=== PATIENT | male | born 2000 | race Caucasian/White ===

== ENCOUNTER 2020-05-05 06:13 | Emergency (ER) | payer OTHER, SELFPAY ==
--- NOTE | ~2020-05-05 | XR_ITS ---
EXAMINATION: XR chest 1V portable DATE: 05/05/2020 08:47 INDICATION: Fever. TECHNIQUE: A single frontal view of the chest was obtained. COMPARISON: CT abdomen and pelvis 09/12/17 FINDINGS: The chest demonstrates clear lungs without pneumonia, pleural effusion, or pneumothorax. Th e heart size is normal. IMPRESSION: 1. No acute cardiopulmonary disease. Reviewed, dictated and finalized at location A. [employer]
[2020-05-05 06:39] VITALS: BP 132/81; PULSE 109; RESP 20; TEMP 38; O2SAT 100
[2020-05-05 06:55] LABS: Basophils Absolute Auto 0.1 K/mm3 (0.0-0.1); Basophils Percent Auto 0.3 % (0.2-1.2); Hematocrit 45.2 % (42.0-52.0); Hemoglobin 16.1 g/dL (14.0-18.0); Immature Granulocyte Absolute 0.11 K/mm3 (0.00-0.031); Immature Granulocyte Percent A 0.5 % (0-0.5); Lymphocytes Absolute Auto 0.86 K/mm3 (0.9-3.2); Lymphocytes Percent Auto 4.1 % (18.3-44.2); Mean Corpuscular HGB Conc 35.6 g/dl (32-36); Mean Corpuscular Hemoglobin 32.3 pg (26-34); Mean Corpuscular Volume 90.6 fl (80-100); Mean Platelet Volume 8.8 fl (7.4-10.4); Monocytes Absolute Auto 1.9 K/mm3 (0.1-0.6); Monocytes Percent Auto 8.9 % (2.6-8.5); Neutrophils Absolute Auto 17.9 K/mm3 (1.3-6.7); Neutrophils Percent Auto 86.2 % (45.5-73.1); Platelet Count Result 192 k/mm3 (150-375); Red Blood Count 4.99 M/mm3 (4.6-6.20); Red Cell Distribution Width 11.9 % (11.5-14.5); White Blood Count 20.8 K/mm3 (4.5-10.0)
[2020-05-05] MEDS: ONDANSETRON INJ 4 MG/2 ML VIAL IV PUSH (06:55)
[2020-05-05 07:15] VITALS: BP 138/79; PULSE 95; RESP 18; O2SAT 96
[2020-05-05 07:25] LABS: Alanine Aminotransferase 18 U/L (4-50); Albumin Level 4.4 g/dL (3.5-5.1); Alkaline Phosphatase 56 U/L (38-126); Anion Gap 7 mmol/L (8-16); Aspartate Amino Transferase 20 U/L (17-59); Bilirubin,Total 1.5 mg/dL (0.2-1.3); Blood Urea Nitrogen 14 mg/dL (9-20); Calcium 9.3 mg/dL (8.4-10.2); Carbon Dioxide 30 mmol/L (22-30); Chloride 98 mmol/L (98-107); Estimated CRCL calculation 99 ml/min; Estimated Glomerular Filt Rate > 60; Glucose 123 mg/dL (75-110); Lipase 57 U/L (23-300); Potassium 3.8 mmol/L (3.4-5.0); Sodium 135 mmol/L (137-145)
--- NOTE | 2020-05-05 07:28 | ED.NAVMDI ---
HPI - Nausea/Vomiting/Diarrhea General Chief complaint: Nausea/Vomiting/Diarrhea Stated complaint: nausea/vomiting/pain Time Seen by Provider: 05/05/20 07:05 History of Present Illness HPI Narrative: Nausea and vomiting since last night. Not tolerating anything PO. Associated with fever, headache, and myalgias. No known sick contacts. Related Data Allergies Allergy/AdvReac Type Severity Reaction Status Date / Time No Known Allergies Allergy Unverified 09/12/17 14:01 Review of Systems Review of Systems: All systems reviewed & are unremarkable except as noted in HPI and below Constitutional: Constitutional: Reports fever(s) ENT: Reports sore throat Cardiovascular: Cardiovascular: Denies chest pain Respiratory: Respiratory: Reports cough and Denies dyspnea Gastrointestinal: Gastrointestinal: Denies abdominal pain, Denies diarrhea, Reports nausea and Reports vomiting Genitourinary: Genitourinary: Denies hematuria and Denies dysuria Musculoskeletal: Musculoskeletal: Reports back pain Integumentary/Breasts: Skin/Breast: Denies rash Neurologic: Denies confusion and Denies numbness PMFSH Past Medical History Medical History Healthy adult Family History Family History Other Asthma Depression Family history of alcoholism Family history of allergic disorder Family history of cardiovascular disease Family history of lung cancer Family history of malignant neoplasm Hypertension Social History Social History Smoking status: Never smoker Second hand tobacco smoke exposure: No Alcohol intake: never Exam Const: General: no acute distress, alert and ill appearing Nutritional Appearance: well nourished Orientation/consciousness: patient oriented x3 HENMT: Head: normal to inspection Neck: Neck: normal visual inspection Resp: Effort & Inspection: normal respiratory effort Auscultation: clear to auscultation bilaterally Cardio: Rate: tachycardic Rhythm: regular rhythm GI: GI Palp: Yes Soft to palpation and No Tenderness to palpation present (GI) Skin: General skin exam: normal color Neuro: General: patient oriented x3, moves all extremities, no focal motor deficits and CN's II-XI intact bilaterally Speech: normal speech Extrem: General: normal to inspection Psych: Appearance: grossly normal Mental Status: mental status grossly normal Affect: normal affect Course Vital Signs Vital signs: Vital Signs Temperature 38.0 C H 05/05/20 06:39 Pulse Rate 109 H 05/05/20 06:39 Respiratory Rate 20 05/05/20 06:39 Blood Pressure 132/81 05/05/20 06:39 Pulse Oximetry 100 05/05/20 06:39 Temperature 38.0 C H 05/05/20 06:39 Pulse Rate 95 05/05/20 09:00 Respiratory Rate 20 05/05/20 09:00 Blood Pressure 116/65 05/05/20 09:00 Pulse Oximetry 96 05/05/20 09:00 MDM - Nausea/Vomiting/Diarrhea MDM Narrative Medical decision making narrative: Tolerating PO. Feeling better with fluids and symptomatic treatment. Differential Diagnosis Differential diagnosis: Likely food poisoning, gastroenteritis, dehydration and other (COVID-19) Medical Records Attestation: I reviewed the patient's medical records. Lab Data Attestation: I reviewed the patient's lab results. Result diagrams: 05/05/20 06:48 05/05/20 07:06 Labs: Lab Results 05/05/20 05/05/20 05/05/20 Range/Units 06:48 07:06 08:10 WBC 20.8 H (4.5-10.0) K/mm3 RBC 4.99 (4.6-6.20) M/mm3 Hgb 16.1 (14.0-18.0) g/dL Hct 45.2 (42.0-52.0) % MCV 90.6 (80-100) fl MCH 32.3 (26-34) pg MCHC 35.6 (32-36) g/dl RDW 11.9 (11.5-14.5) % Plt Count 192 (150-375) k/mm3 MPV 8.8 (7.4-10.4) fl Immature Gran % (Auto) 0.5 (0-0.5) % Neut % (Auto) 86.2 H (45.5-73.1) % Lymph % (Auto)
[2020-05-05] MEDS: SODIUM CHLORIDE 0.9% IV 1,000 ML 999 ML IV CONT ×2 (07:52→08:53)
[2020-05-05] MEDS: METOCLOPRAMIDE HCL INJ 10 MG/2 ML VIAL IV PUSH (07:52)
[2020-05-05 08:00] VITALS: BP 137/87; PULSE 95; RESP 20; O2SAT 98
[2020-05-05 08:20] LABS: Add Urine Microscopic? YES; Appearance Urine Clear (Clear); Bilirubin Urine Negative (Negative); Blood Urine Negative (Negative); Color Urine Yellow (Yellow); Glucose Urine UA Negative (Negative); Ketones Urine 1+ mg/dL (Negative); Leukocyte Esterase Ur Negative LEU/UL (Negative); Mucus Urine Moderate /lpf; Nitrate Urine Negative (Negative); Protein Urine 2+ mg/dL (Negative); RBC Urine 0-2 /hpf (0-2); Urobilinogen Urine Negative mg/dL (<2.0); WBC Urine 0-3 /hpf
[2020-05-05 08:43] LABS: Specific Grav Ur 1.035 (1.001-1.035)
[2020-05-05 09:00] VITALS: BP 116/65; PULSE 95; RESP 20; O2SAT 96
[2020-05-05 17:19] LABS: SARS-CoV-2 RNA PCR Negative
== END 2020-05-05 10:35 | disposition home or self-care (01) ==
PROVIDERS: Emergency Medicine; Emergency Provider Emergency Medicine
DX: K52.9 Noninfective gastroenteritis and colitis, unspecified (principal)
CPT/HCPCS: 36415; 71045; 80053; 81001; 83690; 85025; 87081; 87635; 87804; 87880; 96361; 96365; 96375; 99284; C9803; J0131; J2405; J2765; J7030; U0003

== ENCOUNTER 2020-05-08 11:48 | Emergency (ER) | payer OTHER, SELFPAY ==
[2020-05-08 11:56] VITALS: BP 131/96; PULSE 74; RESP 12; TEMP 36.7; O2SAT 99
--- NOTE | 2020-05-08 12:31 | ED.GENADULT ---
HPI - General Adult General Chief complaint: Upper Respiratory Infection <Javed Perez PA-C - Last Filed: 05/08/20 12:37> Stated complaint: sinus pressure, sore throat, negative covid <Javed Perez PA-C - Last Filed: 05/08/20 12:37> Time Seen by Provider: 05/08/20 12:13 <Javed Perez PA-C - Last Filed: 05/08/20 12:37> Source: patient and old records reviewed <Javed Perez PA-C - Last Filed: 05/08/20 12:37> Mode of arrival: ambulatory <Javed Perez PA-C - Last Filed: 05/08/20 12:37> Limitations: no limitations <Javed Perez PA-C Last Filed: 05/08/20 12:37> History of Present Illness HPI narrative: Patient is a 19-year-old male who presents to emergency department for evaluation of sinus symptoms bilateral ear pain frontal sinus congestion patient had been seen in the ER for nausea and vomiting several days prior which has resolved with Zofran patient notes now he primarily has congestion and rhinorrhea notes recent negative Covid testing denies any sick contacts patient on arrival is in no distress resting comfortably in the room <Javed Perez PA-C Last Filed: 05/08/20 12:37> Related Data Allergies/adverse reactions: Allergies Allergy/AdvReac Type Severity Reaction Status Date / Time No Known Allergies Allergy Verified 05/08/20 11:59 <Javed Perez PA-C - Last Filed: 05/08/20 12:37> Review of Systems Review of Systems: All systems reviewed & are unremarkable except as noted in HPI and below <Javed Perez PA-C - Last Filed: 05/08/20 12:37> PMFSH Past Medical History Medical History: Medical History Healthy adult <Javed Perez PA-C - Last Filed: 05/08/20 12:37> Family History Family History: Family History Other Asthma Depression Family history of alcoholism Family history of allergic disorder Family history of cardiovascular disease Family history of lung cancer Family history of malignant neoplasm Hypertension <Javed Perez PA-C - Last Filed: 05/08/20 12:37> Social History Social History: Social History Smoking status: Never smoker Second hand tobacco smoke exposure: No Alcohol intake: never <TYLER Jurado Last Filed: 05/08/20 12:37> Exam Narrative: Exam Narrative: GENERAL: Well-appearing, well-nourished, and in no acute distress. HEAD: Normocephalic, atraumatic. EYES: PERRLA and EOMI. ENT: Nares clear, no rhinorrhea or epistaxis. Mucous membranes moist. Oropharynx without tonsillar hypertrophy exudate or other lesions. Bilateral TM erythematous bulging with poor landmarks CHEST: Clear to auscultation. No respiratory distress. No wheezes rales or rhonchi HEART: Regular rate and rhythm. No murmur heard. EXTREMITIES: Normal range of motion. No edema. SKIN: Warm, dry, no rash. NEURO: No focal deficits. Alert and oriented x3. PSYCH: Normal mood and affect. <TYLER Jurado Last Filed: 05/08/20 12:37> Course Course Emergency Course: Patient in the room in no distress aware of case findings treatment plan diagnosis he notes he is [place] to [place] on Saturday and will follow with his ENT at that time patient will be treated for sinus infection otitis media is afebrile nontoxic-appearing no distress without emesis and felt appropriate for outpatient reevaluation <Javed Perez PA-C - Last Filed: 05/08/20 12:37> Vital Signs Vital signs: Vital Signs Temperature 98.1 F 05/08/20 11:56 Pulse Rate 74 05/08/20 11:56 Respiratory Rate 12 05/08/20 11:56 Blood Pressure 131/96 H 05/08/20 11:56 Pulse Oximetry 99 05/08/20 11:56 Temperature 98.1 F 05/08/20 11:56 Pulse Rate 74 05/08/20 11:56 Respiratory Rate 12 05/08/20 11:56 Blood Pre
== END 2020-05-08 12:57 | disposition home or self-care (01) ==
PROVIDERS: Emergency Provider General Practice
DX: J06.9 Acute upper respiratory infection, unspecified (principal); H66.93 Otitis media, unspecified, bilateral
CPT/HCPCS: 99283

== ENCOUNTER 2021-05-26 14:18 | Emergency (ER) | payer OTHER, SELFPAY ==
[2021-05-26 14:33] VITALS: BP 154/87; PULSE 106; RESP 18; TEMP 38.4; O2SAT 99
--- NOTE | 2021-05-26 15:37 | ED.URI ---
HPI - URI/Sore Throat General Chief Complaint: Upper Respiratory Infection Stated Complaint: home covid test +, congestion, low appetite Time Seen by Provider: 05/26/21 14:54 Source: patient Mode of arrival: ambulatory Limitations: no limitations History of Present Illness HPI Narrative: This is a 20 year old male that presents to the ER for cold symptoms present since this morning. Reports congestion, rhinorrhea, fever, nausea and vomiting. Reports he had an at home positive COVID test. He is COVID vaccinated, has not received a booster yet. He is in the and is supposed to be flying in 3 days. He needed a documented result to notify that he has COVID and will not be returning as scheduled. He has not taken anything for his symptoms yet today. Denies chest pain or shortness of breath. Related Data Allergies Allergy/AdvReac Type Severity Reaction Status Date / Time No Known Allergies Allergy Verified 05/08/20 11:59 Review of Systems Review of Systems: CONSTITUTIONAL: Reports fever, chills ENT: Reports rhinorrhea, congestion CARDIOVASCULAR: Denies chest pain RESPIRATORY: Denies dyspnea. GASTROINTESTINAL: Reports nausea, vomiting All systems reviewed & are unremarkable except as noted in HPI and below PMFSH Past Medical History Medical History Healthy adult Family History Family History Other Asthma Depression Family history of alcoholism Family history of allergic disorder Family history of cardiovascular disease Family history of lung cancer Family history of malignant neoplasm Hypertension Social History Social History Smoking status: Never smoker Second hand tobacco smoke exposure: No Alcohol intake: never Exam Narrative: GENERAL: Well-appearing, well-nourished, and in no acute distress. HEAD: Normocephalic, atraumatic. EYES: EOMI. ENT: Nares clear, no rhinorrhea or epistaxis. Mucous membranes moist. Oropharynx without tonsillar hypertrophy exudate or other lesions. Bilateral TMs pearly rausch non-bulging NECK: Supple. No adenopathy or masses. CHEST: Clear to auscultation. No respiratory distress. No wheezes rales or rhonchi HEART: Regular rate and rhythm. No murmur heard. Normal peripheral pulses. EXTREMITIES: Normal range of motion. No edema. SKIN: Warm, dry, no rash. NEURO: No focal deficits. Alert and oriented x3. PSYCH: Normal mood and affect Course Vital Signs Vital signs: Vital Signs Temperature 101.1 F H 05/26/21 14:33 Pulse Rate 106 H 05/26/21 14:33 Respiratory Rate 18 05/26/21 14:33 Blood Pressure 154/87 H 05/26/21 14:33 Pulse Oximetry 99 05/26/21 14:33 Temperature 101.1 F H 05/26/21 14:33 Pulse Rate 106 H 05/26/21 14:33 Respiratory Rate 18 05/26/21 14:33 Blood Pressure 154/87 H 05/26/21 14:33 Pulse Oximetry 99 05/26/21 14:33 MDM - URI/Sore Throat MDM Narrative Medical decision making narrative: Patient presents to the emergency department for cold symptoms. Febrile upon arrival, given dose of Tylenol in the ED. Given Zofran with relief of nausea and vomiting. Able to tolerate oral intake. SARS COVID 2 PCR was positive. Patient's oxygen saturation is normal on room air. His lungs are clear on exam. Patient was instructed on continued care of viral infection. He was given warnings to return to the ER Lab Data Attestation: I reviewed the patient's lab results. Labs: Lab Results 05/26/21 Range/Units 15:40 SARS-CoV-2 RNA (RT-PCR) Positive A Critical Care Time Critical Care Time Critical Care Time: No Discharge Plan Discharge Clinical Impression: COVID-19 Patient Disposition: Home, Self-Care Condition: Stable Instructions: COVID-19 (Coronavirus Disease 2019) (ED), Face Coverings (Masks) and COVID-19 (ED), How to Recover from COVID-19 at
[2021-05-26] MEDS: ONDANSETRON HCL ODT 4 MG TABLET (15:40)
[2021-05-26] MEDS: ACETAMINOPHEN 500 MG TABLET 1000 MG PO (15:40)
[2021-05-26 16:57] LABS: SARS-CoV-2 RNA PCR Positive
[2021-05-26 17:41] VITALS: BP 124/70; PULSE 83; RESP 18; O2SAT 98
== END 2021-05-26 17:40 | disposition home or self-care (01) ==
PROVIDERS: Physician Assistant; Emergency Provider Emergency Medicine
DX: U07.1 COVID-19 (principal)
CPT/HCPCS: 99283; A9270; C9803; U0003; U0005

== ENCOUNTER 2023-03-12 18:21 | Emergency (ER) | payer OTHER, SELFPAY ==
[2023-03-12 18:35] VITALS: BP 146/92; PULSE 100; RESP 18; TEMP 38.1; O2SAT 97
--- NOTE | 2023-03-12 19:41 | ED.GENADULT ---
HPI - General Adult General Chief complaint: Upper Respiratory Infection Stated complaint: Headache/Back Pain/Sore Throat Source: patient Mode of arrival: ambulatory Limitations: no limitations History of Present Illness HPI narrative: Patient presents for evaluation of sick symptoms since this morning. Symptoms include sore throat, nausea, vomiting, body aches, back pain, bilateral ear pain, sinus congestion, thick green drainage from his nares, headache and fever. He has tried taking tylenol and ibuprofen for his symptoms without much improvement. He does have a history of sinus infections and ear infections. He is not aware of any sick contacts. Related Data Allergies Allergy/AdvReac Type Severity Reaction Status Date / Time No Known Allergies Allergy Verified 03/12/23 18:36 Review of Systems Review of Systems: CONSTITUTIONAL: Reports fever. Denies chills or sweats. EYES: Denies visual changes, redness, or discharge. ENT: Reports sinus congestion, thick green drainage from the nares, sore throat and bilateral ear pain CARDIOVASCULAR: Denies chest pain, palpitations, or edema. RESPIRATORY: Denies cough or dyspnea. GASTROINTESTINAL: Reports nausea and vomiting. Denies abdominal pain or diarrhea. GENITOURINARY: Denies dysuria or hematuria. SKIN: Denies rash or itching. MUSCULOSKELETAL: Reports back pain and generalized body aches NEUROLOGIC: Reports headache. Denies numbness, dizziness, or weakness. PSYCHIATRIC: Denies anxiety or depression. PENDING SALE TO [facility] Past Medical History Medical History Back pain Healthy adult Surgical History Surgical History No pertinent past surgical history Family History Family History Other Asthma Depression Family history of alcoholism Family history of allergic disorder Family history of cardiovascular disease Family history of lung cancer Family history of malignant neoplasm Hypertension Social History Social History Smoking status: Never smoker Second hand tobacco smoke exposure: No Alcohol intake: never Substance use: never Living arrangements: with family Gender identity (if verbalized by the patient): Male Spiritual care concerns: No Exam Narrative: GENERAL: Appears uncomfortable but nontoxic. Well-nourished, and in no acute distress. HEAD: Normocephalic, atraumatic. EYES: PERRLA and EOMI. ENT: Nares clear, no rhinorrhea or epistaxis. Frontal and bilateral maxillary sinus tenderness. Mucous membranes moist. Posterior pharyngeal erythema without exudate. Uvula is midline. Bilateral tympanic membranes are erythematous and bulging NECK: Supple. No adenopathy or masses. No carotid bruits or JVD CHEST: Clear to auscultation. No respiratory distress. No wheezes rales or rhonchi HEART: Regular rate and rhythm. No murmur heard. Normal peripheral pulses. ABDOMEN: Soft, nontender, nondistended, normal active bowel sounds. EXTREMITIES: Normal range of motion. No edema. BACK: Diffuse back tenderness without discrete bony spinal tendernesss. SKIN: Warm, dry, no rash. NEURO: No focal deficits. Alert and oriented x3. PSYCH: Normal mood and affect. Course Course Emergency Course: This is a 22 old male who presented for evaluation of sick symptoms. Strep was negative. He took a home COVID test today which was negative. He does have evidence of otitis media on exam. Will tx with augmentin. Zofran for nausea. Pain has not responded to ibuprofen or Tylenol so will treat with tramadol. Increase hydration. [id number] agents for symptom management. Follow up with primary provider. Go to the ER for worsening symptoms. Patient in agreement with plan of care. Level of Care: Express Care Visit Vital Signs V
== END 2023-03-12 19:32 | disposition home or self-care (01) ==
PROVIDERS: Emergency Provider Nurse Practitioner
DX: H66.93 Otitis media, unspecified, bilateral (principal); J02.9 Acute pharyngitis, unspecified; R11.2 Nausea with vomiting, unspecified; M54.9 Dorsalgia, unspecified
CPT/HCPCS: 87081; 87880; 99213; G0463

== ENCOUNTER 2023-03-18 11:41 | Emergency (ER) | payer OTHER, SELFPAY ==
--- NOTE | ~2023-03-18 | XR_ITS ---
EXAMINATION: XR chest 2V DATE: 03/18/2023 12:03 INDICATION: One week of cough and fever TECHNIQUE: PA and lateral views of the chest were obtained. COMPARISON: Chest radiograph date FINDINGS: The lungs remain clear with no focal airspace opacities, pulmonary edema, pleural effusion or pneumot horax. The cardiomediastinal silhouette is normal. Mild thoracic spondylosis. IMPRESSION: 1. No acute cardiopulmonary disease. Reviewed, dictated and finalized at location A.
--- NOTE | ~2023-03-18 | XR_ITS ---
EXAMINATION: XR abdomen/kub 1V DATE: 03/18/2023 12:28 INDICATION: Back pain. TECHNIQUE: A supine view of the abdomen on 2 radiographs was obtained. COMPARISON: CT abdomen and pelvis 09/12/2017 FINDINGS: There are no dilated loops of bowel. There is a moderate volume of stool in the colon. Ther e is a fluid collection right pelvis. There is a 2 mm calcification in left pelvis. IMPRESSION: 1. 2 mm calcification in left pelvis that may be a phlebolith or distal left ureteral stone. Reviewed, dictated and finalized at location E. IMPRESSION: 1. 2 mm calcification in left pelvis that may be a phlebolith or distal left ur eteral stone.
[2023-03-18 11:53] VITALS: BP 142/80; PULSE 115; RESP 20; TEMP 39.9; O2SAT 98
--- NOTE | 2023-03-18 11:53 | ED.URI ---
HPI - URI/Sore Throat General Chief Complaint: Upper Respiratory Infection Stated Complaint: Back pain/congestion/cough Time Seen by Provider: 03/18/23 12:06 Source: patient and RN notes reviewed Mode of arrival: ambulatory Limitations: no limitations History of Present Illness HPI Narrative: 22-year-old male presents with concern for ongoing fever, worsening back pain, headache. Reports he was seen here 6 days ago and was prescribed Augmentin for an ear infection. He had a negative COVID test at that time. Reports he is taking the Augmentin as prescribed, his ear is no longer painful, but his other symptoms are worsening. He reports posterior headache. He denies decreased or increased urine frequency, urgency, burning, hematuria. He reports nausea without vomiting. He has been taking Zofran that he was prescribed on his last visit. He denies abdominal pain MD elicited complaint: fever Related Data Allergies Allergy/AdvReac Type Severity Reaction Status Date / Time No Known Allergies Allergy Verified 03/12/23 18:36 Review of Systems Review of Systems: CONSTITUTIONAL: Reports malaise, chills, sweats, fever. EYES: Denies visual changes, redness, or discharge. ENT: Denies rhinorrhea, congestion, sinus pain, otalgia and sore throat. CARDIOVASCULAR: Denies chest pain, palpitations, or edema. RESPIRATORY: Reports cough. Denies dyspnea. GASTROINTESTINAL: Denies abdominal pain, nausea, vomiting, diarrhea SKIN: Denies rash or itching. MUSCULOSKELETAL: Reports myalgia, reports back pain NEUROLOGIC: reports posterior headache. All systems reviewed & are unremarkable except as noted in HPI and below PMFSH Past Medical History Medical History Back pain Healthy adult Surgical History Surgical History No pertinent past surgical history Family History Family History Other Asthma Depression Family history of alcoholism Family history of allergic disorder Family history of cardiovascular disease Family history of lung cancer Family history of malignant neoplasm Hypertension Social History Social History Smoking status: Never smoker Second hand tobacco smoke exposure: No Alcohol intake: never Substance use: never Living arrangements: with family Gender identity (if verbalized by the patient): Male Spiritual care concerns: No Comments At time of signature, agree with nursing past medical, surgical, social and family history. There is no relevant family history pertinent to the presenting complaint Exam Narrative: GENERAL: Nontoxic-appearing and in no acute distress. HEAD: Normocephalic EYES: PERRLA, conjunctivae clear ENT: Nares clear. Mucous membranes moist. TM pearly rausch with sharp light reflex bilaterally; no tragal tenderness. Oropharynx not erythematous without lesions. Tonsils not enlarged and without exudate, no drooling, no hoarseness, no trismus, uvula midline. NECK: Supple. No lymphadenopathy CHEST: Clear to auscultation, breath sounds equal. No wheezing, rhonchi, rales, or stridor. No respiratory distress, speaks in full sentences. HEART: Regular rate and rhythm. No murmur heard. MUSC: midline back tenderness SKIN: Warm, dry, no rash. NEURO: Alert and oriented x3. PSYCH: Normal mood and affect Course Course Emergency Course: Patient is aware of, understands and agrees to be transferred to the emergency department. Patient agrees to proceed directly to the emergency department. Portions of this record may have been created with voice recognition software Level of Care: Express Care Visit Vital Signs Vital signs: Vital Signs Temperature 103.9 F H 03/18/23 11:53 Pulse Rate 115 H 03/18/23 11:53 Respiratory Rate 20 10/3
== END 2023-03-18 12:59 | disposition short-term general hospital (02) ==
LOC: EXPBETH 11:45
PROVIDERS: Emergency Provider Nurse Practitioner
DX: U07.1 COVID-19 (principal)
CPT/HCPCS: 71046; 74018; 81003; 87426; 99213; C9803; G0463